=== PATIENT | female | born 1955 | race Hispanic/Latino ===

== ENCOUNTER 2023-08-19 14:28 | Emergency (ER) | payer MEDICARE ==
[~2023-08-19] VITALS: Ht 160 cm; Wt 64.9 kg
[2023-08-19 14:42] VITALS: BP 132/74; PULSE 76; RESP 16
== END 2023-08-19 21:41 | disposition left against medical advice (07) ==
LOC: EDH 14:28
DX: M25.552 Pain in left hip (principal); Z53.21 Procedure and treatment not carried out due to patient leaving prior to being seen by health care provider
CPT/HCPCS: 73502; 99281